=== PATIENT | female | born 1990 | race Two or more races ===

== ENCOUNTER 2017-11-16 13:30 | Inpatient (IN) | payer OTHER ==
[~2017-11-16] VITALS: Ht 162.6 cm; Wt 69.9 kg
[2017-11-29] MEDS ORDERED: PRENATAL 19 TA1 EAC1 (10:55)
== END 2017-11-30 17:26 | DRG 775 ==
LOC: LDR 11-28 13:55 → OB/GYN 11-28 16:32 → LDR 12-08 13:30
PROC: 10E0XZZ Delivery of Products of Conception, External Approach (ICD-10-PCS; principal; 2017-11-28)
PROC: 4A1HXCZ Monitoring of Products of Conception, Cardiac Rate, External Approach (ICD-10-PCS; 2017-11-28)
DX: O80 Encounter for full-term uncomplicated delivery (principal); Z3A.38 38 weeks gestation of pregnancy; Z37.0 Single live birth

== ENCOUNTER → 2018-01-30 | Day surgery (SDC) | payer OTHER ==
[~2018-01-30] MED LIST: PERCOCET 5-3251 EACH PO; PRENATAL 19 TA1 EAC1
== END | disposition home or self-care (01) ==
LOC: ADM 01-23 09:00 → CIR.AMB 06:34
DX: Z30.2 Encounter for sterilization (principal)